=== PATIENT | female | born 1955 ===

== ENCOUNTER 2021-11-28 09:55 | Oncology outpatient (recurring) (ONCR) | payer MEDICARE, BC, SELFPAY ==
--- NOTE | 2021-11-26 15:45 | N.ONRAD NP_ITS ---
Radiation Oncology New Patient Visit Patient: Cari Altman MR#: [id number] : 1955> Age: 65> Sex: Female> Dictated by: Dr. Yassine Roger Date of Service: 11/26/2021 Referring Physician(s) : Dr. Jose Moses Diagnosis: Lung, right, adenocarcinoma Radiotherapy to date: Summary > No prior radiation therapy. Chief Complaint / History of Present Illness: Ms. Arroyo is a 65-year-old lady who presented with dyspnea, wheezing, cough with yellow mucus production and poor appetite. Chest imaging revealed evidence of a right lower lobe postobstructive pneumonia, right hilar mass, right lower lobe nodule. She was referred to pulmonology but ultimately underwent a CT-guided needle biopsy. The pathology reveals poorly differentiated adenocarcinoma consistent with a lung primary. I have not seen her PET, but is reported to show right hilar lymphadenopathy as well as uptake in the primary cancer in the right lung. According to the PET report, there is some uptake in the left hilar lymph nodes, significance uncertain. We are trying to obtain the PET for review. I am not sure if she has unresectable disease, though it is certainly unresectable if she has bilateral hilar involvement. She is referred for evaluation and recommendations. Current Medications: Medication list reviewed today. She she is on amlodipine, 325 mg aspirin, hydralazine 25 mg, held when systolic pressure below 130; hydroxychloroquine 200 mg tablet, lisinopril 40 mg daily Lyrica 75 mg every 12 hours, nabumetone 15% amitriptyline 2% lidocaine 2% prilocaine 2% magnesium 5% applied up to every 6 hour applied to painful areas. Tumeric. Allergies: Nickel and amoxicillin Medical History: History of melanoma of the posterior right shoulder. She had a resection and removal of lymph nodes by Dr. Guardado at [facility]. She did not receive adjuvant therapy and has had no evidence of recurrence. She has had a CVA with full recovery, osteoarthritis, long-term Plaquenil for lupus, COPD with chronic bronchitis, hypertension, lumbar spondylosis, fibromyalgia, osteoarthritis of both hands, seborrheic keratosis, neuroforaminal stenosis of the lumbar spine, trigeminal neuropathy, and undifferentiated connective tissue disease. She has lupus and is on Plaquenil. On questioning I do not think she has had any major complications from the lupus. No previous radiation therapy. Surgical History: Melanoma surgery as noted above, left shoulder repair, hysterectomy 1990, completion hysterectomy with bilateral oophorectomy 2000, right ulnar nerve transposition,. Family History: Social History: She is and accompanied by her . She is retired nurse. Denies alcohol use but has a significant history of smoking 1-1/2 packs/day for about 50 years. Current Complaints / Review of Systems: . Vital Signs: Performed on 11/26/2021 11:12 AM BMI - 20.426 kg/m2, Height - 64 in, Weight - 119 lbs, Temperature - 97.1 f, Pulse - 78 /min, Respiration - 18 /min, O2 Sat - 95 % (low), Pain - 9, Fatigue - 9 and BP - 151/ 72 mm(hg)(high/). Physical Exam: Alert, oriented, no acute distress. Neck: Supple. No masses. No supraclavicular or cervical lymphadenopathy. Lungs clear to percussion. On auscultation she has inspiratory rhonchi bilaterally, greater on the right. No rales or wheezes. Heart rhythm regular. No murmur or gallop. Abdomen no distention. No organomegaly or mass or tenderness. Musculoskeletal: No bone tenderness on percussion or palpation. Neurologic exam grossly intact. Performance Status: ECOG 2 Pathology: Poorly differentiated adenocarcinoma Lab: Imaging: See HPI Impression: Non-small cell carcinoma of the lung, unresectable. The PET was read as abnormal in the right hilar and adjacent mediastinal nodes as well as in the right lower lobe primary. The left hilar nodes were described as having less uptake. We will need to get the PET loaded into our system so it can be reviewed and we can make a determination about whether the right hilar nodes are pathologic or indeterminant. I discussed that chemoradiation has been recommended. I reviewed a concomitant course of chemotherapy and external beam radiation. I discussed side effects and possible complications. I discussed that in the thorax the esophagus, lung, and heart are the main structures of concern. I discussed that her risk of complications is higher because of the lupus. We agreed that the cancer is more dangerous than the potential complications from radiation and lupus. She wishes to proceed. Plan: We will plan a simulation and also get her PET scan from [facility] loaded in our system for review. Signed by: 11/26/2021 3:43:07 PM <<Signature on File>> Time spent with patient: CPT Code: CPT Code:
--- NOTE | 2021-11-28 | CT_ITS ---
Radiation Therapy Planning CT images; total exam DLP: 332.25 mGy-cm MTDD
--- NOTE | 2021-11-29 09:44 | N.ONRAD NP_ITS ---
Radiation Oncology New Patient Visit Patient: Cari Altman MR#: [id number] : 1955> Age: 65> Sex: Female> Dictated by: Dr. Yassine Roger Date of Service: 11/26/2021 Referring Physician(s) : Dr. Jose Moses Diagnosis: Lung, right, adenocarcinoma Radiotherapy to date: Summary > No prior radiation therapy. Addendum--as noted below in the consult performed 11/26/2021, I had not reviewed the PET scan images from 08/29/2021, and I did not have the PET scan report at the time of the consultation. I have now reviewed the PET scan. There is significant hypermetabolic activity in the right middle lobe. It was interpreted as likely infectious/inflammatory. However, there is certainly uptake that is localized laterally that may represent a mass. (That is my interpretation). Also on the PET (08/29/2021) the report indicated there could be uptake representing malignancy in the left hilar nodes. The report was very inconclusive. In reviewing the study myself, I suspect there are malignant nodes on the left. Dr. Mullins saw the patient at [facility] 10/22/2021, and he had scheduled another PET. The patient was a no-show for the study according to his office. I suspect he wanted a repeat PET for the reasons stated in the paragraph above. .The patient has been referred for chemoradiation. We have fused her simulation CT with the PET. At this point there is no way to determine an appropriate radiation volume for this patient. Another PET is needed to clarify disease status in the right middle lobe, the left hilum, and other sites in the body. If she has any distant metastases then systemic therapy only would be utilized. Chief Complaint / History of Present Illness: Ms. Altman is a 65-year-old lady who presented with dyspnea, wheezing, cough with yellow mucus production and poor appetite. Chest imaging revealed evidence of a right lower lobe postobstructive pneumonia, right hilar mass, right lower lobe nodule. She was referred to pulmonology but ultimately underwent a CT-guided needle biopsy. The pathology reveals poorly differentiated adenocarcinoma consistent with a lung primary. I have not seen her PET, but is reported to show right hilar lymphadenopathy as well as uptake in the primary cancer in the right lung. According to the PET report, there is some uptake in the left hilar lymph nodes, significance uncertain. We are trying to obtain the PET for review. I am not sure if she has unresectable disease, though it is certainly unresectable if she has bilateral hilar involvement. She is referred for evaluation and recommendations. Current Medications: Medication list reviewed today. She she is on amlodipine, 325 mg aspirin, hydralazine 25 mg, held when systolic pressure below 130; hydroxychloroquine 200 mg tablet, lisinopril 40 mg daily Lyrica 75 mg every 12 hours, nabumetone 15% amitriptyline 2% lidocaine 2% prilocaine 2% magnesium 5% applied up to every 6 hour applied to painful areas. Tumeric. Allergies: Nickel and amoxicillin Medical History: History of melanoma of the posterior right shoulder. She had a resection and removal of lymph nodes by Dr. Guardado at [facility]. She did not receive adjuvant therapy and has had no evidence of recurrence. She has had a CVA with full recovery, osteoarthritis, long-term Plaquenil for lupus, COPD with chronic bronchitis, hypertension, lumbar spondylosis, fibromyalgia, osteoarthritis of both hands, seborrheic keratosis, neuroforaminal stenosis of the lumbar spine, trigeminal neuropathy, and undifferentiated connective tissue disease. She has lupus and is on Plaquenil. On questioning I do not think she has had any major complications from the lupus. No previous radiation therapy. Surgical History: Melanoma surgery as noted above, left shoulder repair, hysterectomy 1990, completion hysterectomy with bilateral oophorectomy 2000, right ulnar nerve transposition,. Family History: Social History: She is and accompanied by her . She is retired nurse. Denies alcohol use but has a significant history of smoking 1-1/2 packs/day for about 50 years. Current Complaints / Review of Systems: . Vital Signs: Performed on 11/26/2021 11:12 AM BMI - 20.426 kg/m2, Height - 64 in, Weight - 119 lbs, Temperature - 97.1 f, Pulse - 78 /min, Respiration - 18 /min, O2 Sat - 95 % (low), Pain - 9, Fatigue - 9 and BP - 151/ 72 mm(hg)(high/). Physical Exam: Alert, oriented, no acute distress. Neck: Supple. No masses. No supraclavicular or cervical lymphadenopathy. Lungs clear to percussion. On auscultation she has inspiratory rhonchi bilaterally, greater on the right. No rales or wheezes. Heart rhythm regular. No murmur or gallop. Abdomen no distention. No organomegaly or mass or tenderness. Musculoskeletal: No bone tenderness on percussion or palpation. Neurologic exam grossly intact. Performance Status: ECOG 2 Pathology: Poorly differentiated adenocarcinoma Lab: Imaging: See HPI Impression: Non-small cell carcinoma of the lung, unresectable. The PET was read as abnormal in the right hilar and adjacent mediastinal nodes as well as in the right lower lobe primary. The left hilar nodes were described as having less uptake. We will need to get the PET loaded into our system so it can be reviewed and we can make a determination about whether the right hilar nodes are pathologic or indeterminant. I discussed that chemoradiation has been recommended. I reviewed a concomitant course of chemotherapy and external beam radiation. I discussed side effects and possible complications. I discussed that in the thorax the esophagus, lung, and heart are the main structures of concern. I discussed that her risk of complications is higher because of the lupus. We agreed that the cancer is more dangerous than the potential complications from radiation and lupus. She wishes to proceed. Plan: We will plan a simulation and also get her PET scan from [facility] loaded in our system for review. Signed by: 11/29/2021 9:43:31 AM <<Signature on File>> Time spent with patient: CPT Code: CPT Code:
== END 2021-12-02 23:59 | disposition home or self-care (01) ==
PROVIDERS: Family Provider Internal Medicine; Visit Provider Specialist
DX: Z51.0 Encounter for antineoplastic radiation therapy (principal); C34.31 Malignant neoplasm of lower lobe, right bronchus or lung; F17.210 Nicotine dependence, cigarettes, uncomplicated
CPT/HCPCS: 77334; 77470; 99203; 99205